=== PATIENT | male | born 1965 | race Caucasian/White ===

== ENCOUNTER 2016-12-23 05:49 | Day surgery (SDC) | payer MEDICAID ==
[2016-12-23] MEDS ORDERED: Thrombin (Bovine) 5,000 Unit Kit ONE (06:41)
[2016-12-23] MEDS ORDERED: Bupivacaine 0.5%/EPINEPHrine 1:200,000 50 ML MDV ONE (06:42)
[2016-12-23] MEDS ORDERED: Povidone-Iodine 10% Soln 118.25 ML Bottle ONE (06:42)
[2016-12-23] MEDS: Lactated Ringers 1,000 ML IV SCH ×2 (06:53→15:30)
[2016-12-23] MEDS ORDERED: Dexamethasone 4 MG/ML SDV ONE (07:08)
[2016-12-23] MEDS ORDERED: Propofol 200 MG/20 ML SDV ONE ×4 (07:08→08:30)
[2016-12-23] MEDS ORDERED: Rocuronium 50 MG/5 ML Vial ONE (07:08)
[2016-12-23] MEDS ORDERED: Ondansetron 4 MG/2 ML SDV ONE (07:08)
[2016-12-23] MEDS ORDERED: Succinylcholine/Normal Saline 200 MG/10 ML Syringe ONE (07:08)
[2016-12-23] MEDS ORDERED: Neostigmine Methylsulfate 1 MG/ML 5 ML Syringe ONE (07:08)
[2016-12-23] MEDS ORDERED: fentaNYL 250 MCG/5 ML SDV ONE ×3 (07:09→09:00)
[2016-12-23] MEDS ORDERED: ceFAZolin 2 GM in Premix Bag 1 BAG IV ONE (07:30)
[2016-12-23] MEDS ORDERED: ceFAZolin 2 GM in Sodium Chloride 0.9% 50 ML IV ONE (07:30)
[2016-12-23] MEDS: Tranexamic Acid 1,000 MG in Sodium Chloride 0.9% 50 ML IV SCH ×2 (07:32→10:24)
[2016-12-23] MEDS ORDERED: Sodium Chloride 0.9% 10 ML Syringe FLUSH PRN (10:11)
[2016-12-23] MEDS ORDERED: Magnesium Hydroxide 400 MG/5 ML Susp 30 ML Cup PO PRN (10:11)
[2016-12-23] MEDS ORDERED: Ondansetron 4 MG/2 ML SDV IVPUSH PRN (10:11)
[2016-12-23] MEDS ORDERED: Sennosides 8.6 MG Tab PO PRN (10:11)
[2016-12-23] MEDS ORDERED: Naloxone 0.4 MG/ML SDV IVPUSH PRN (10:11)
[2016-12-23] MEDS ORDERED: Zolpidem 5 MG Tab PO PRN (10:11)
[2016-12-23] MEDS ORDERED: Aluminum Hydroxide/Magnesium Hydroxide/Simethicone Susp 30 ML Cup PO PRN (10:11)
[2016-12-23] MEDS ORDERED: ALBUTEROL SULFATE 1.25 MG IH PRN (10:15)
[2016-12-23] MEDS ORDERED: BECLOMETHASONE DIPROPIONATE INH PRN (10:15)
[2016-12-23] MEDS ORDERED: ALBUTEROL SULFATE INH PRN (10:15)
[2016-12-23] MEDS ORDERED: hydrOXYzine HCl 50 MG/ML SDV IM ONE (10:17)
[2016-12-23] MEDS ORDERED: Albuterol 0.083% 2.5 MG/3 ML Neb Soln INH PRN (11:45)
[2016-12-23] MEDS ORDERED: Lactated Ringers 1,000 ML ONE (12:06)
[2016-12-23] MEDS: HYDROmorphone 1 MG/ML Syringe IVPUSH PRN ×4 (12:10→23:16)
--- NOTE | 2016-12-23 12:47 | OR ---
DATE OF PROCEDURE: 12/23/2016 PREOPERATIVE DIAGNOSIS: Cervical stenosis C5-C6 and C6-C7. POSTOPERATIVE DIAGNOSIS: Cervical stenosis C5-C6 and C6-C7. PROCEDURES: 1. Anterior cervical diskectomy and fusion C5-C6. 2. Anterior cervical diskectomy and fusion C6-C7. 3. Segmental fixation C5-C6 and C6-C7. 4. Use of operating microscope. 5. Use of Signify graft and packed in the interbody. 6. Placement of spacer and screws at C5-C6 and C6-C7. AIR INTERCEPT CONTROLLER: Cherelle Markham NP. ANESTHESIA: General endotracheal intubation. FLUID: Lactated Ringer solution. ESTIMATED BLOOD LOSS: Less than 25 mL. COMPLICATIONS: None. SPECIMEN: None. DISCHARGE DISPOSITION: Stable to PACU. HISTORY AND INDICATION FOR THE PROCEDURE: The patient, Raf, was seen in the clinic. Preoperative imaging confirmed the above-mentioned diagnosis. Risks and benefits of the procedure were explained to the patient. An informed consent was obtained. DETAILS OF PROCEDURE: The patient was seen preoperatively by myself and Anesthesia staff in the preoperative holding area, where the operative site was marked. He was brought to the operative suite by the Anesthesia staff, where general anesthesia was administered. Neuromonitoring leads were placed. The fluoroscopy unit was draped in sterile manner. Operative microscope was draped in a sterile manner. The patient was transferred to the [place] table in a supine position. Arms were tucked. The shoulders were taped and the patient was prepped and draped in sterile manner. Time-out was called identifying the correct patient, the correct procedure, the correct site, and antibiotics had been with appropriate period of time. Lateral fluoroscopy was then used to identify the C6-C7 level. An oblique incision was made, medial sternocleidomastoid on the right for approximately 3.5 to 4 cm and carried down to the platysma. Weitlaner retractor was used for a traction. I then used Bovie electrocautery and bipolar electrocautery and cauterized through the platysma. I then used DeBakey and Metzenbaum to go through the fascia medial to sternocleidomastoid and then into the prevertebral space. I then cleared the prevertebral space with blunt dissection and then inserted a wet Cloward, identified the C6-C7 space and confirmed it on fluoroscopy and then cleared the prevertebral fascia as well as the medial border of the longus colli, and mobilized them and then placed a 50 retractor on the patient's left and a 45 blade retractor on the patient's right. This was a Shadow-line retractor. We then confirmed the level again. We then used a knife to go through the disk space and then removed the disk with pituitaries 3-0 angled curette and #3 and #2 Kerrisons down to the level of the posterior longitudinal ligament. The curette was then passed out the foramen bilaterally and then confirmed to have good clearance with the nerve hook. I did go through a portion of the PLL with the nerve hook. I removed the inferior portion of the posterior lip of the superior vertebral body with #2 Kerrison. I then drilled portion of the endplates to provide for a good fit. I then used thrombin-soaked Gel-Foam and small cottonoid and applied pressure at the back for epidural bleeding, which was minimal. We then trialed up to an 8 and then inserted an 8 mm, 14 x 16, 7-degree angle [facility] from [facility], [place]. I then focused my attention to the C5-C6 level. However, once I was down to the level of the posterior lip, I then brought in the operating microscope and performed the same procedure. We then placed another 8 mm implant at the C5-C6 level. We then copiously irrigated with saline, 2 L of Betadine infused irrigation. I then took final films and then used a Cloward and cauterized portions of the medial border of the underside of the longus colli. I then inserted some Floseal, and allowed it to sit for about 1 minute and then placed a damp Ray-Ernie and removed any excess. I then placed a drain at the base at the prevertebral level and then brought it out the lateral portion of the incision. I then used 2-0 Vicryl and closed the platysma with 3 interrupted sutures followed by another liter of Betadine infused irrigation followed by suturing with 2-0 Monocryl, Dermabond, and Steri- Strips, and then a sterile dressing with an Op-Site to hold the drain. The patient was transferred to his hospital bed. Neuromonitoring leads were normal throughout the case. Leads were removed and then he was taken back to the PACU in stable condition. Quentin Ibrahim DO /[id number]
[2016-12-23] MEDS: Nicotine 21 MG/24 Hr Patch TRDERM SCH (14:21)
[2016-12-23] MEDS ORDERED: Albuterol 8 GM Inhaler INH PRN (14:57)
[2016-12-23] MEDS: ceFAZolin 2 GM in Sodium Chloride 0.9% 50 ML IV SCH ×2 (16:19→23:16)
[2016-12-23] MEDS: Acetaminophen/oxyCODONE 325-5 MG Tab PO PRN ×2 (17:08→21:04)
[2016-12-23] MEDS ORDERED: Formoterol/Mometasone 100-5 MCG 8.8 GM Inhaler IH SCH (21:00)
[2016-12-23] MEDS ORDERED: traZODone 50 MG Tab PO SCH (21:00)
[2016-12-24] MEDS: Acetaminophen/oxyCODONE 325-5 MG Tab PO PRN ×3 (03:05→11:27)
[2016-12-24] MEDS ORDERED: ADVAIR 250/50 INHALER INH SCH (07:00)
[2016-12-24] MEDS ORDERED: Pantoprazole 40 MG Tab.CR PO SCH (07:30)
[2016-12-24] MEDS: Citalopram 20 MG Tab PO SCH ×2 (08:44→08:49)
[2016-12-24] MEDS: ceFAZolin 2 GM in Sodium Chloride 0.9% 50 ML IV SCH (08:45)
[2016-12-24] MEDS: Nicotine 21 MG/24 Hr Patch TRDERM SCH (08:47)
[2016-12-24] MEDS ORDERED: Non-Formulary Medication 1 Each (Citalopram Hydrobromide [Celexa] 20 MG) PO SCH (09:00)
[2016-12-24] MEDS ORDERED: traZODone 50 MG Tab PO SCH (09:00)
[2016-12-24] MEDS ORDERED: Non-Formulary Medication 1 Each (Fluticasone/Salmeterol [Advair Diskus 100-50] 1 PUFF) INH SCH (09:00)
[2016-12-24] MEDS ORDERED: OMEPRAZOLE MAGNESIUM PO SCH (09:00)
[2016-12-24 11:19] VITALS: BP 122/84
[2016-12-24] MEDS ORDERED: Pneumococcal Polyvalent-23 Vaccine 0.5 ML SDV IM ONE (12:00)
--- NOTE | 2016-12-28 10:57 | PCM.DCSUM1 ---
Discharge Summary - Hospital Course Free Text/Narrative:: Ricki menezes pleasant 51-year-old male who is status postop day 1 of a lumbar fusion. He is doing very well. He denies any concerns at this time. He's been ambulating without any difficulties. his pain is controlled with oral pain medication at this time. - Discharge Data Discharge Date: 12/24/16 Discharge Disposition: Home, Self-Care 01 Condition: Good - Patient Summary/Data Consults: Consultations 12/23/16 10:11 OT Evaluation and Treatment [CONS] Routine Please Evaluate and Treat. OT Reason for Consult: Strengthening This query below is only for informational purposes and is not editable. PT Evaluation and Treatment [CONS] Routine Please Evaluate and Treat. PT Reason for Consult: Strengthening This query below is only for informational purposes and is not editable. - Patient Instructions Diet: Usual Diet as Tolerated Activity: Apply Ice, As Tolerated Driving: Do Not Drive Showering/Bathing: May Shower Wound/Incision Care: Keep Operative Site/Wound Site Clean and Dry, Change Dressing Daily - Discharge Plan Prescriptions/Med Rec: oxyCODONE HCl [Oxycodone HCl] 10 mg PO Q6HR PRN #90 tablet PRN Reason: Pain Home Medications: Home Meds Omeprazole Magnesium [Prilosec] 20 oz PO DAILY 12/01/15 [History] ALPRAZolam [Xanax] 0.5 mg PO ASDIRECTED 04/15/16 [History] Ibuprofen 800 mg PO ASDIRECTED PRN 04/15/16 [History] Methocarbamol [Robaxin] 500 mg PO ASDIRECTED 04/15/16 [History] Gabapentin [Neurontin] 900 mg PO TID 10/26/16 [History] Albuterol Sulfate 1.25 mg IH DAILY PRN 12/18/16 [History] Albuterol Sulfate [Proair Respiclick] 2 inh INH BID PRN 12/18/16 [History] Citalopram Hydrobromide [Celexa] 20 mg PO DAILY 12/18/16 [History] Diclofenac Potassium [Cataflam] 50 mg PO TIDMEALS 12/18/16 [History] Hydrocodone/Acetaminophen [Vicodin 5-300 mg Tablet] 2 each PO Q4H PRN 12/18/16 [ History] Naproxen [Naprosyn] 500 mg PO Q12HR 12/18/16 [History] Nicotine [Habitrol] 21 mg TRDERM DAILY 12/18/16 [History] traZODone HCl [Trazodone HCl] 50 mg PO BEDTIME 12/18/16 [History] Fluticasone/Salmeterol [Advair 250-50 Diskus] 1 puff IH DAILY 12/23/16 [History] oxyCODONE HCl [Oxycodone HCl] 10 mg PO Q6HR PRN #90 tablet 12/24/16 [Rx] Patient Handouts: Spinal Fusion, Care After, Oxycodone tablets or capsules Referrals: Quentin Ibrahim DO [Physician] - (1 month recheck) - Discharge Summary/Plan Comment DC Time >30 min.: Yes Discharge Summary/Plan Comment: At this time patient is doing well. We'll discharge him today. He will follow up with physical therapy in 1 month. He will follow-up with orthopedic clinic in one month. He is to take his pain medication as prescribed. He'll notify us if he has any other issues. - General Info Functional Status: Reports: pain controlled, tolerating diet, ambulating, urinating - Review of Systems General: Reports: No Symptoms Musculoskeletal: Reports: no symptoms - Patient Data Vitals - Most Recent: Last Vital Signs Temp 2.9 C L 12/24/16 11:17 Pulse 84 12/24/16 11:17 Resp 16 12/24/16 11:17 BP 122/84 12/24/16 11:17 Pulse Ox 94 L 12/24/16 11:17 Weight - Most Recent: 210 lb Med Orders - Current: Current Medications Discontinued Medications Al Hydroxide/Mg Hydroxide (Mag-Al Plus) 30 ml PO Q4H PRN PRN Reason: Indigestion Albuterol (Proventil Neb Soln) 1.25 mg INH DAILY PRN PRN Reason: Shortness of Breath Albuterol (Ventolin Hfa) 0 gm INH ASDIRECTED PRN PRN Reason: Shortness of Breath Last Admin: 12/23/16 19:42 Dose: 1 puff Bupivacaine HCl/Epinephrine Bitart (Marcaine 0.5%/Epinephrine 1:200,000) Confirm Administered Dose 50 ml .ROUTE .STK-MED ONE Stop: 12/23/16 06:43 Last Admin: 12/23/16 08:25 Dose: 15 ml Citalopram Hydrobromide (Celexa) 20 mg PO DAILY [facility] Last Admin: 12/24/16 08:49 Dose: Not Given Dexamethasone (Dexamethasone) Confirm Administered Dose 4 mg .ROUTE .STK-MED ONE Stop: 12/23/16 07:09 Diazepam (Valium) 5 mg IVPUSH Q6H PRN PRN Reason: Spasms Last Admin: 12/24/16 00:10 Dose: 5 mg Fentanyl (Sublimaze) Confirm Administered Dose 500 mcg .ROUTE .STK-MED ONE Stop: 12/23/16 07:10 Fentanyl (Sublimaze) Confirm Administered Dose 250 mcg .ROUTE .STK-MED ONE Stop: 12/23/16 08:00 Fentanyl (Sublimaze) Confirm Administered Dose 250 mcg .ROUTE .STK-MED ONE Stop: 12/23/16 09:01 Glycopyrrolate () Confirm Administered Dose 1 mg .ROUTE .STK-MED ONE Stop: 12/23/16 07:09 Hydromorphone HCl (Dilaudid) 1 mg IVPUSH Q2H PRN PRN Reason: Pain Last Admin: 12/23/16 23:16 Dose: 1 mg Hydroxyzine HCl (Vistaril) 100 mg IM ONETIME ONE Stop: 12/23/16 10:18 Last Admin: 12/23/16 10:28 Dose: 100 mg Lactated Ringer's (Ringers, Lactated) 1,000 mls @ 0 mls/hr IV ASDIRECTED [facility] PRN Reason: KVO Last Admin: 12/23/16 15:30 Dose: 100 mls/hr Tranexamic Acid 1,000 mg/ (Sodium Chloride) 60 mls @ 240 mls/hr IV Q3H [facility] Stop: 12/23/16 10:44 Last Admin: 12/23/16 10:24 Dose: 240 mls/hr Cefazolin Sodium 2 gm/ Sodium (Chloride) 50 mls @ 100 mls/hr IV ONETIME ONE Stop: 12/23/16 07:59 Last Admin: 12/23/16 07:32 Dose: 100 mls/hr Cefazolin Sodium 2 gm/ Sodium (Chloride) 50 mls @ 100 mls/hr IV Q8H [facility] Stop: 12/24/16 08:29 Last Admin: 12/24/16 08:45 Dose: 100 mls/hr Lactated Ringer's (Ringers, Lactated) Confirm Administered Dose 1,000 mls @ as directed .ROUTE .STK-MED ONE Stop: 12/23/16 12:07 Magnesium Hydroxide (Milk Of Magnesia) 30 ml PO BID PRN PRN Reason: Constipation Naloxone HCl (Narcan) 0.2 mg IVPUSH ASDIRECTED PRN PRN Reason: Oversedation Stop: 12/23/16 16:00 Neostigmine Methylsulfate (Neostigmine) Confirm Administered Dose 5 mg .ROUTE .STK-MED ONE Stop: 12/23/16 07:09 Nicotine (Habitrol) 21 mg TRDERM DAILY [facility] Last Admin: 12/24/16 08:47 Dose: 21 mg Ondansetron HCl (Zofran) Confirm Administered Dose 4 mg .ROUTE .STK-MED ONE Stop: 12/23/16 07:09 Ondansetron HCl (Zofran) 8 mg IVPUSH Q4H PRN PRN Reason: Nausea/Vomiting Oxycodone/Acetaminophen (Percocet 325-5 Mg) 2 tab PO Q4H PRN PRN Reason: Pain Last Admin: 12/24/16 11:27 Dose: 2 tab Pantoprazole Sodium (Protonix) 40 mg PO ACBREAKFAST [facility] Last Admin: 12/24/16 07:57 Dose: 40 mg Advair 250/50 (Inhaler) 0 each INH DAILYRT [facility] Last Admin: 12/24/16 09:07 Dose: 1 each Pneumococcal Polyvalent Vaccine (Pneumovax 23) 0.5 ml IM .ONCE ONE Stop: 12/24/16 12:01 Last Admin: 12/24/16 11:30 Dose: Not Given Povidone Iodine (Betadine 10% Soln) Confirm Administered Dose 1 ml .ROUTE .STK- MED ONE Stop: 12/23/16 06:43 Last Admin: 12/23/16 08:27 Dose: 50 ml Propofol (Diprivan 20 Ml) Confirm Administered Dose 200 mg .ROUTE .STK-MED ONE Stop: 12/23/16 07:09 Propofol (Diprivan 20 Ml) Confirm Administered Dose 600 mg .ROUTE .STK-MED ONE Stop: 12/23/16 07:13 Propofol (Diprivan 20 Ml) Confirm Administered Dose 400 mg .ROUTE .STK-MED ONE Stop: 12/23/16 08:29 Propofol (Diprivan 20 Ml) Confirm Administered Dose 200 mg .ROUTE .STK-MED ONE Stop: 12/23/16 08:31 Rocuronium [place] (Zemuron) Confirm Administered Dose 50 mg .ROUTE .STK-MED ONE Stop: 12/23/16 07:09 Senna (Senna) 8.6 mg PO BID PRN PRN Reason: Constipation Sodium Chloride (Saline Flush) 10 ml FLUSH ASDIRECTED PRN PRN Reason: Keep Vein Open Succinylcholine Chloride (Succinylcholine In Ns Pf) Confirm Administered Dose 200 mg .ROUTE .STK-MED ONE Stop: 12/23/16 07:09 Thrombin (Thrombin-Jmi) Confirm Administered Dose 15,000 unit .ROUTE .STK-MED ONE Stop: 12/23/16 06:42 Last Admin: 12/23/16 08:26 Dose: 10,000 unit Trazodone HCl (Trazodone) 50 mg PO BEDTIME [place] Last Admin: 12/23/16 21:04 Dose: Not Given Zolpidem Tartrate (Ambien) 5 mg PO BEDTIME PRN PRN Reason: Sleep Last Admin: 12/23/16 21:04 Dose: 5 mg - Exam General: Reports: alert, oriented Back Exam: Reports: Normal Inspection Extremities: Reports: no edema Skin: Reports: warm, dry, intact Wound/Incisions: Reports: healing well, dressing dry and intact *Q Meaningful Use (DIS) - VTE *Q VTE Criteria *Q: - Stroke *Q Stroke Criteria *Q: - AMI *Q AMI Criteria *Q:
== END 2016-12-24 13:30 | disposition home or self-care (01) ==
LOC: JP.SDS 05:49 → JP.MS 10:11 → JP.SDS 12-24 13:30
PROVIDERS: ATTEND Orthopaedic Surgery
DX: M48.02 Spinal stenosis, cervical region (principal); F17.200 Nicotine dependence, unspecified, uncomplicated; F41.9 Anxiety disorder, unspecified; J44.9 Chronic obstructive pulmonary disease, unspecified
CPT/HCPCS: 20931; 22551; 22552; 22845; 36415; 76001; 80048; 85025; 86850; 86900; 86901; 94640; 97161; 97165; 97530; 97535; A9270; C1713; J0690; J1100; J1170; J2405; J2704; J3010; J3360; J3410; J7050; J7120

== ENCOUNTER 2017-03-17 14:15 | Emergency (ER) | payer MEDICAID ==
[2017-03-17 14:58] VITALS: BP 134/92
--- NOTE | 2017-03-17 15:50 | EDM.PDOC ---
ED HPI GENERAL MEDICAL PROBLEM - General Chief Complaint: Back Pain or Injury Stated Complaint: WEAK/PAIN IN BACK/HAD BACK SURGERY Time Seen by Provider: 03/17/17 15:15 Source of Information: Reports: Patient History Limitations: Reports: No Limitations - History of Present Illness INITIAL COMMENTS - FREE TEXT/NARRATIVE: 51-year-old male wants some help for some chronic neck pain, especially with extension. He had cervical surgery in December, had a follow-up appointment 3 weeks ago. He has been set up for chronic pain management as well as local injections but he is refusing to get the injections because he has had a bad outcome in the past. He does not look uncomfortable at all. A RELIEF WORKER search does show fairly frequent narcotic prescriptions, he received 120 tramadol 13 days ago and says he has "a few left". No neurologic complaints such as paresthesias of the arms or legs or significant weakness. Onset: Unknown/Unsure Duration: Chronic Location: Reports: Neck Quality: Reports: Burning, Sharp Severity: Moderate Worsens with: Reports: Other (Looking upper or extension of the neck) Associated Symptoms: Reports: No Other Symptoms Back Pain Score (Numeric/FACES): 8 - Related Data Allergies Allergy/AdvReac Type Severity Reaction Status Date / Time acetaminophen [From Tylenol] AdvReac Stomach Verified 03/17/17 15:14 Upset Home Meds: Home Meds Omeprazole Magnesium [Prilosec] 20 oz PO DAILY 12/01/15 [History] ALPRAZolam [Xanax] 0.5 mg PO ASDIRECTED 04/15/16 [History] Ibuprofen 800 mg PO ASDIRECTED PRN 04/15/16 [History] Methocarbamol [Robaxin] 500 mg PO ASDIRECTED 04/15/16 [History] Gabapentin [Neurontin] 900 mg PO TID 10/26/16 [History] Albuterol Sulfate 1.25 mg IH DAILY PRN 12/18/16 [History] Albuterol Sulfate [Proair Respiclick] 2 inh INH BID PRN 12/18/16 [History] Citalopram Hydrobromide [Celexa] 20 mg PO DAILY 12/18/16 [History] Diclofenac Potassium [Cataflam] 50 mg PO TIDMEALS 12/18/16 [History] Naproxen [Naprosyn] 500 mg PO Q12HR 12/18/16 [History] Nicotine [Habitrol] 21 mg TRDERM DAILY 12/18/16 [History] traZODone HCl [Trazodone HCl] 50 mg PO BEDTIME 12/18/16 [History] Fluticasone/Salmeterol [Advair 250-50 Diskus] 1 puff IH DAILY 12/23/16 [History] oxyCODONE HCl [Oxycodone HCl] 10 mg PO Q6HR PRN #90 tablet 12/24/16 [Rx] Past Medical History HEENT History: Reports: Impaired Vision Cardiovascular History: Reports: SOB on Exertion Other Cardiovascular History: copd Respiratory History: Reports: COPD Gastrointestinal History: Reports: GERD Musculoskeletal History: Reports: Back Pain, Chronic, Neck Pain, Chronic Other Musculoskeletal History: s/p cervical fusion Psychiatric History: Reports: Anxiety, Depression - Infectious Disease History Infectious Disease History: Reports: Chicken Pox - Past Surgical History Neurological Surgical History: Reports: Spinal Fusion Social & Family History - Tobacco Use Smoking Status *Q: Light Tobacco Smoker Years of Tobacco use: 25 Packs/Tins Daily: 0.3 Second Hand Smoke Exposure: Yes - Caffeine Use Caffeine Use: Reports: Coffee, Soda - Recreational Drug Use Recreational Drug Use: No ED ROS GENERAL - Review of Systems Review Of Systems: See Below Constitutional: Denies: Fever, Chills HEENT: Denies: Throat Pain Respiratory: Denies: Shortness of Breath Cardiovascular: Denies: Chest Pain GI/Abdominal: Denies: Nausea, Vomiting Skin: Reports: No Symptoms Neurological: Denies: Headache ED EXAM, UPPER BACK/NECK PAIN - Physical Exam Exam: See Below Exam Limited By: No Limitations General Appearance: Alert, No Apparent Distress Eye Exam: Bilateral Eye: EOMI Head Exam: Atraumatic Neck Exam: Other (Well-healed surgical scars are present. No significant palpation tenderness is present but he has a sharp pain with extension of the neck at 25-30) Neurologic: No Motor/Sensory Deficits Psychiatric: Normal Affect, Normal Mood Skin Exam: Normal Color, Warm/Dry Course - Vital Signs Last Recorded V/S: Last Vital Signs Temp 97.9 F 03/17/17 15:12 Pulse 93 03/17/17 15:12 Resp 14 03/17/17 15:12 BP 134/92 H 03/17/17 15:12 Pulse Ox 97 03/17/17 15:12 - Re-Assessments/Exams Free Text/Narrative Re-Assessment/Exam: 03/18/17 07:29 This patient recently has had imaging studies which were uninformative and looked good. I am concerned that he is becoming convince the pain medications are the only answer. I did discuss his condition with his surgeon and I will provide him with 10 oxycodone to use for pain control sparingly that he needs any further refills from his primary care or his surgeon. He needs to increase his activity, participate in his physical therapy recommendations and consider injections which were recommended. Departure - Departure Time of Disposition: 16:13 Disposition: Home, Self-Care 01 Condition: Good Clinical Impression: Chronic neck pain - Discharge Information Instructions: Musculoskeletal Pain Referrals: PCP,None [Primary Care Provider] - Forms: ED Department Discharge Care Plan Goals: Increase activity as tolerated, use stronger pain medications sparingly and recheck with primary care if not improving satisfactorily.
== END 2017-03-17 16:13 | disposition home or self-care (01) ==
LOC: JP.ED 14:15
DX: G89.29 Other chronic pain (principal); M54.2 Cervicalgia; J44.9 Chronic obstructive pulmonary disease, unspecified; K21.9 Gastro-esophageal reflux disease without esophagitis; F41.9 Anxiety disorder, unspecified; F32.9 Major depressive disorder, single episode, unspecified; F17.210 Nicotine dependence, cigarettes, uncomplicated; Z88.8 Allergy status to other drugs, medicaments and biological substances; Z79.899 Other long term (current) drug therapy
CPT/HCPCS: 99285